=== PATIENT | female | born 1985 | race Caucasian/White ===

== ENCOUNTER 2016-11-23 22:23 | Inpatient (IN) | payer OTHER ==
[~2016-11-23] VITALS: Ht 175.3 cm; Wt 83.6 kg
[2016-11-23] MEDS ORDERED: OXYTOCIN 30U/ 0.9% NaCL 500ML 500 ML ONE (22:35)
[2016-11-23] MEDS ORDERED: MISOPROSTOL 200 MCG TABLET ONE (22:35)
[2016-11-23] MEDS ORDERED: LIDOCAINE 1%, 20ML ONE (22:35)
[2016-11-23] MEDS ORDERED: NEWBORN KIT ONE (22:35)
[2016-11-23] MEDS ORDERED: D5%-LACTATED RINGERS 1,000 ML IV SCH (22:42)
[2016-11-23] MEDS ORDERED: OXYTOCIN 30U/ 0.9% NaCL 500ML 500 ML IV ONE (22:42)
[2016-11-23] MEDS ORDERED: LACTATED RINGERS 1,000 ML IV SCH (22:42)
[2016-11-23] MEDS ORDERED: FENTANYL PF 100 MCG/2ML IV PRN (23:00)
[2016-11-23] MEDS ORDERED: PLEASE ENTER ALLERGIES MC SCH ×2 (23:00)
[2016-11-23] MEDS ORDERED: FENTANYL PF 100 MCG/2ML IVPush PRN (23:00)
[2016-11-23] MEDS ORDERED: ONDANSETRON 2MG/ML, 2ML IVPush PRN (23:00)
[2016-11-23] MEDS ORDERED: CALCIUM CARBONATE 500 MG TAB.CHEW PO PRN (23:00)
[2016-11-23] MEDS ORDERED: TERBUTALINE 1 MG/ML, 1ML IVPush PRN (23:00)
[2016-11-23 23:09] VITALS: BP 122/63
[2016-11-24] MEDS ORDERED: TERBUTALINE 1 MG/ML, 1ML ONE (01:51)
[2016-11-24] MEDS ORDERED: SODIUM CITRATE/CITRIC ACID 30 ML UDC ONE (01:54)
[2016-11-24] MEDS ORDERED: METOCLOPRAMIDE 5 MG/ML, 2ML ONE ×2 (01:55→04:17)
[2016-11-24] MEDS ORDERED: LACTATED RINGERS 1,000 ML INTUTE PRN (02:00)
[2016-11-24] MEDS ORDERED: LACTATED RINGERS 1,000 ML INTUTE SCH (02:00)
[2016-11-24] MEDS ORDERED: BUPIVACAINE/PF 0.25% ONE (02:44)
[2016-11-24] MEDS ORDERED: FENTANYL/BUPIV./NS/PF 250 ML EPIDCONT ONE (02:44)
[2016-11-24] MEDS ORDERED: LACTATED RINGERS 1,000 ML IV SCH ×3 (02:53→05:28)
[2016-11-24] MEDS ORDERED: FENTANYL/BUPIV./NS/PF 250 ML EPIDCONT SCH (02:53)
[2016-11-24] MEDS ORDERED: LABETALOL 5MG/ML, 20ML IV PRN (03:00)
[2016-11-24] MEDS ORDERED: LACTATED RINGERS 1,000 ML IVBOLUS PRN (03:00)
[2016-11-24] MEDS ORDERED: FENTANYL PF 100 MCG/2ML IV PRN (03:00)
[2016-11-24] MEDS ORDERED: HYDROmorphone 1 MG/ML, 1ML IV PRN (03:00)
[2016-11-24] MEDS ORDERED: NALOXONE 0.4 MG/ML, 1ML IVPush PRN (03:00)
[2016-11-24] MEDS ORDERED: HYDROcodone/APAP 7.5-325MG/15ML UDC PO PRN (03:00)
[2016-11-24] MEDS ORDERED: ONDANSETRON 2MG/ML, 2ML IVPush PRN (03:00)
[2016-11-24] MEDS ORDERED: ALBUTEROL SULFATE 2.5 MG/3 ML NPPB PRN (03:00)
[2016-11-24] MEDS ORDERED: hydrALAzine 20 MG/ML, 1ML IV PRN (03:00)
[2016-11-24] MEDS ORDERED: OXYcodone 5 MG/5 ML ORAL.SOL UDC PO PRN (03:00)
[2016-11-24] MEDS ORDERED: EPHEDRINE 50 MG/ML, 1ML IVPush PRN ×2 (03:00)
[2016-11-24] MEDS ORDERED: PROMETHAZINE 25 MG/ML, 1ML IV PRN (03:00)
[2016-11-24] MEDS ORDERED: ALBUTEROL/IPRATROPIUM 2.5MG/0.5MG, 3 ML NPPB PRN (03:00)
[2016-11-24] MEDS ORDERED: MEPERIDINE/PF 25MG/0.5ML IVPush PRN (03:00)
[2016-11-24] MEDS ORDERED: MIDAZOLAM 1 MG/ML, 2ML IV PRN (03:00)
[2016-11-24] MEDS ORDERED: FENTANYL PF 100 MCG/2ML ONE ×2 (04:14)
[2016-11-24] MEDS ORDERED: ONDANSETRON 2MG/ML, 2ML ONE (04:17)
[2016-11-24] MEDS ORDERED: CEFAZOLIN 1,000 MG ONE (04:17)
[2016-11-24] MEDS ORDERED: KETOROLAC 30 MG/1 ML ONE ×3 (04:17→16:47)
[2016-11-24] MEDS ORDERED: DEXAMETHASONE 4 MG/ML, 1ML ONE (04:17)
[2016-11-24] MEDS ORDERED: MEPERIDINE/PF 100 MG/ML ONE (05:27)
[2016-11-24] MEDS ORDERED: OXYTOCIN 30U/ 0.9% NaCL 500ML 500 ML IV SCH (05:28)
[2016-11-24] MEDS ORDERED: IBUPROFEN 600 MG TABLET PO PRN (05:30)
[2016-11-24] MEDS ORDERED: CALCIUM CARBONATE 500 MG TAB.CHEW PO PRN (05:30)
[2016-11-24] MEDS ORDERED: METOCLOPRAMIDE 5 MG/ML, 2ML IV PRN (05:30)
[2016-11-24] MEDS ORDERED: SIMETHICONE 80 MG CHEW TAB PO PRN (05:30)
[2016-11-24] MEDS ORDERED: ACETAMINOPHEN 325 MG TABLET PO PRN (05:30)
[2016-11-24] MEDS ORDERED: ONDANSETRON 2MG/ML, 2ML IV PRN (05:30)
[2016-11-24] MEDS ORDERED: SODIUM CITRATE/CITRIC ACID 30 ML UDC PO PRN (06:00)
[2016-11-24] MEDS ORDERED: PRENATAL VIT/IRON/FA 1 EACH TABLET PO SCH (09:00)
[2016-11-24] MEDS: KETOROLAC 30 MG/1 ML IV SCH ×3 (11:18→22:53)
[2016-11-24] MEDS: SERTRALINE 50MG TABLET PO SCH (13:12)
[2016-11-24] MEDS: OXYcodone/APAP 5/325MG TABLET PO PRN ×2 (14:21→20:34)
[2016-11-24] MEDS ORDERED: OXYcodone/APAP 5/325MG TABLET ONE ×2 (14:21→15:49)
[2016-11-24] MEDS ORDERED: morphine SULFATE 10 MG/ML, 1ML IVPush ONE ×2 (16:00→19:00)
[2016-11-24] MEDS ORDERED: OXYcodone/APAP 5/325MG TABLET PO PRN ×2 (16:00)
[2016-11-24 18:08] VITALS: BP 112/67
[2016-11-24 19:30] VITALS: BP 113/70
[2016-11-25] VITALS: BP 100/65
[2016-11-25 03:29] VITALS: BP 107/69
[2016-11-25] MEDS: OXYcodone/APAP 5/325MG TABLET PO PRN ×4 (03:54→21:20)
[2016-11-25] MEDS: KETOROLAC 30 MG/1 ML IV SCH ×3 (04:44→18:16)
[2016-11-25 06:53] VITALS: BP 106/65
[2016-11-25] MEDS: SERTRALINE 50MG TABLET PO SCH (09:00)
[2016-11-25] MEDS: DOCUSATE 100 MG CAPSULE PO PRN ×2 (09:10→21:20)
[2016-11-25 12:22] VITALS: BP 107/67
[2016-11-25 15:34] VITALS: BP 104/63
[2016-11-25 20:59] VITALS: BP 118/71
[2016-11-26] MEDS: KETOROLAC 30 MG/1 ML IV SCH ×2 (00:05→06:23)
[2016-11-26 00:10] VITALS: BP 109/59
[2016-11-26] MEDS: OXYcodone/APAP 5/325MG TABLET PO PRN ×3 (04:36→14:10)
[2016-11-26 04:50] VITALS: BP 111/74
[2016-11-26] MEDS ORDERED: KETOROLAC 30 MG/1 ML ONE (06:18)
[2016-11-26 06:35] VITALS: BP 117/69
[2016-11-26] MEDS: SERTRALINE 50MG TABLET PO SCH (09:00)
[2016-11-26] MEDS: DOCUSATE 100 MG CAPSULE PO PRN (09:59)
[2016-11-26] MEDS ORDERED: OXYC-302 PO (12:01)
[2016-11-26] MEDS ORDERED: DOCU-30 PO (12:02)
[2016-11-26] MEDS ORDERED: IBUP-1222 PO (12:02)
[2016-11-26] MEDS ORDERED: PREN1TAB60 PO (12:04)
== END 2016-11-26 17:20 | disposition home or self-care (01) | DRG 765 ==
LOC: LDOP 22:23 → LDIP 22:37 → 2NW 11-24 17:35
PROVIDERS: ADMIT Obstetrics & Gynecology; ATTEND Obstetrics & Gynecology
PROC: 10D00Z1 Extraction of Products of Conception, Low, Open Approach (ICD-10-PCS; principal; 2016-11-24)
PROC: 0UT70ZZ Resection of Bilateral Fallopian Tubes, Open Approach (ICD-10-PCS; 2016-11-24)
DX: O42.02 Full-term premature rupture of membranes, onset of labor within 24 hours of rupture (principal); D62 Acute posthemorrhagic anemia; O76 Abnormality in fetal heart rate and rhythm complicating labor and delivery; O69.81X0 Labor and delivery complicated by cord around neck, without compression, not applicable or unspecified; O99.344 Other mental disorders complicating childbirth; F32.9 Major depressive disorder, single episode, unspecified; O32.8XX0 Maternal care for other malpresentation of fetus, not applicable or unspecified; Z30.2 Encounter for sterilization; Z3A.39 39 weeks gestation of pregnancy; Z37.0 Single live birth; Z87.891 Personal history of nicotine dependence
CPT/HCPCS: 36415; 82803; 85025; 86850; 86900; 88302; J0690; J1100; J1885; J2175; J2405; J3010; J2590; J2765; J7120